=== PATIENT | male | born 1930 | race Caucasian/White ===

== ENCOUNTER → 2017-02-18 | Outpatient (CLI) | payer BC | LOC: FIMAGING 10:35 | PROVIDERS: ATTEND Physician Assistant Medical ==

== ENCOUNTER 2017-07-10 09:47 | Inpatient (IN) | payer OTHER, BC ==
[2017-07-10 10:40] LABS: PLATELET COUNT 136 10^3/uL (150-400)
--- NOTE | 2017-07-10 10:58 | EDPHY ---
General - History Smoking Status: Former smoker Narrative: CHIEF COMPLAINT: Flu-like symptoms, found on the floor HISTORY OF PRESENT ILLNESS: Patient presents with complaints of fever, cough, weakness, myalgia malaise. The symptoms started within the past 48 hr. There abrupt onset. Constant duration. His family members at bedside say that he was not a anglican this morning, thus they went to check on. They found him laying on the side of his bed on the floor. He does not know exactly what time he ended up there. He does not think he fell. He has no headache or neck pain. No chest pain. He has cough that is dry. No neck pain or stiffness. No vomiting but some nausea. Some fever malaise. No trauma or injury otherwise noted. No other associated complaints or modifying factors. REVIEW OF SYSTEMS: Ten systems reviewed and are negative unless otherwise noted in the HPI PCP: Dr. Thomas SPECIALISTS: Dr. Ireland, cardiology PAST MEDICAL HISTORY: Multiple medical diagnoses. Positive Eliquis use for AFib PAST SURGICAL HISTORY: No recent surgeries SOCIAL HISTORY: Nonsmoker. Lives independently. FAMILY HISTORY: Noncontributory EXAMINATION General Appearance: Alert, no distress Head: normocephalic, atraumatic. No Cabrera sign. No raccoon eyes. Eyes: Pupils equal and round, no conjunctival pallor or injection ENT, Mouth: Mucous membranes moist airway patent Neck: Normal inspection, supple, non-tender. No meningeal signs Respiratory: Lungs are clear to auscultation. No wheezing, rhonchi or crackles Cardiovascular: Regular rate and rhythm. No murmur Gastrointestinal: Abdomen is soft and nontender Back: non-tender, no bony abnormalities Neurological: GCS 15. Cranial nerves 2-12 grossly intact. A&O, nonfocal, strength is symmetric in all 4 limbs. No pronator drift Skin: Warm and dry, no rash. No petechiae or purpura Extremities: Nontender, no pedal edema Psychiatric: Mood and affect normal DIFFERENTIAL DIAGNOSES: Including but not limited to influenza, pneumonia, bronchitis, rhabdo, weakness , dehydration MDM: 10:50 a.m. Acute cough with body aches and flu-like symptoms. The patient also fell from bed sometime last night. He was there for unknown period, possible rule out rhabdomyolysis. Laboratory studies, blood cultures and lactic acid are pending. Chest x-ray pending. CT of the head and neck ordered due to Eliquis use. He is in no acute distress but will likely require admission to the hospital. 11:20 a.m. Positive for influenza A. CK is moderately elevated. He is currently in CT scan and has not yet had his chest x-ray. I have ordered IV fluid for the early rhabdo. I have ordered Tamiflu. Remainder of workup is pending. 11:45 a.m. Notified by radiologist Dr. Lee. CT scans of the head and cervical spine are negative for acute findings. 11:50 a.m. Re-evaluated the patient. He is in no acute distress. Mildly hypoxic at 89% on room air. Chest x-ray is currently being shot and I do not appreciate any obvious pneumonia on this. Proceed with admission to the hospital for influenza with hypoxemia and early rhabdo. 11:53 a.m. Case discussed with hospitalist Marcy Jo. Patient will be admitted to Dr. Zavala. He is admitted in stable condition SUPERVISION: Patient was independently examined, but I discussed the case with my secondary supervising physician Dr. Au (Giovanny Maria) Medical Decision Making: I discussed and evaluated this patient with Chemo malone. I agree with the management. I have reviewed the data. We will admission is patient the hospital. The patient has influenza and does not require broad-spectrum antibiotics at this time. (Gabriel Au) - Diagnostics Imaging Results: Imaging Impressions Cervical Spine CT 07/10/17 10:50 Impression: 1. No acute fracture or soft tissue swelling. 2. If the patient has persistent pain or neurologic deficits, consider cervical spine MRI. Findings discussed with emergency department physician anatomic pathology assistant, Giovanny Maria PA-C on July 10, 2017 at 11:48 a.m. Chest X-Ray 07/10/17 10:50 Impression: Clear lungs. Chronic mild airways disease. Head CT 07/10/17 10:50 Impression: 1. Negative. No acute intracranial hemorrhage or fracture. 2. Atrophy and white matter disease similar to 2012. Findings discussed with emergency department physician anatomic pathology assistant, Giovanny Maria PA-C on July 10, 2017 at 11:48 a.m. - Objective Vital Signs: Initial Vital Signs Temperature (C) 98.6 F 07/10/17 09:48 Respiratory Rate 18 07/10/17 09:48 Blood Pressure 139/104 H 07/10/17 09:48 Allergies/Adverse Reactions: griseofulvin Allergy (Verified 01/08/14 09:39) Home Medications: Medication Instructions Recorded Allopurinol [Allopurinol 300 MG 300 mg PO DAILY 01/08/14 (RX)] Aspirin EC [Aspirin EC 81 mg (*)] 81 mg PO DAILY 01/08/14 Furosemide [Lasix 20 MG (*)] 20 mg PO DAILY 01/08/14 Lisinopril [Zestril 2.5 mg (*)] 2.5 mg PO DAILY 01/08/14 Metoprolol Succinate Xr [Toprol Xl 100 mg PO DAILY 01/08/14 50 mg (*)] Apixaban [Eliquis] 2.5 mg PO BID 07/10/17 Calcitriol 0.5 mcg PO DAILY 07/10/17 Digoxin [Digitek] 125 mcg PO MWF@08 07/10/17 Digoxin [Digitek] 250 mcg PO SUTUTHSA@08 07/10/17 Latanoprost 0.005% [Xalatan 0.005% 1 drops EACHEYE HS 07/10/17 (*)] Rosuvastatin Calcium [Crestor] 10 mg PO HS 07/10/17 Laboratory Results: Laboratory Results 07/10/17 10:15 07/10/17 10:15 07/10/17 07/10/17 07/10/17 11:15 10:15 10:15 WBC RBC Hgb Hct MCV MCH MCHC RDW Plt Count MPV Neut % (Auto) Lymph % (Auto) Union % (Auto) Eos % (Auto) Baso % (Auto) Nucleat RBC Rel Count Absolute Neuts (auto) Absolute Lymphs (auto) Absolute Monos (auto) Absolute Eos (auto) Absolute Basos (auto) Absolute Nucleated RBC Immature Gran % Immature Gran # PT 14.6 SEC SEC (12.0-15.0) INR 1.12 (0.83-1.16) APTT 29.4 SEC SEC (23.0-38.0) VBG Lactic Acid 1.6 mmol/L mmol/L (0.7-2.1) Sodium Potassium Chloride Carbon Dioxide Anion Gap BUN Creatinine Estimated GFR Glucose Calcium Total Bilirubin 1.6 mg/dL H mg/dL (0.1-1.4) Creatine Kinase 4687 IU/L H IU/L (0-224) CK-MB (CK-2) Fraction 17.50 ng/mL H ng/mL (0.00-3.19) CK-MB (CK-2) % 0.4 % % (0.0-4.0) Creatine Kinase Interp NEGATIVE (NEGATIVE) Nasal Influenza A PCR Nasal Influenza B PCR 07/10/17 07/10/17 07/10/17 10:15 10:15 10:15 WBC 7.99 10^3/uL 10^3/uL (3.80-9.50) RBC 4.76 10^6/uL 10^6/uL (4.40-6.38) Hgb 16.4 g/dL g/dL (13.7-17.5) Hct 47.5 % % (40.0-51.0) MCV 99.8 fL fL (81.5-99.8) MCH 34.5 pg H pg (27.9-34.1) MCHC 34.5 g/dL g/dL (32.4-36.7) RDW 14.0 % % (11.5-15.2) Plt Count 136 10^3/uL L 10^3/uL (150-400) MPV 11.1 fL fL (8.7-11.7) Neut % (Auto) 83.8 % H % (39.3-74.2) Lymph % (Auto) 5.8 % L % (15.0-45.0) Union % (Auto) 9.3 % % (4.5-13.0) Eos % (Auto) 0.0 % L % (0.6-7.6) Baso % (Auto) 0.6 % % (0.3-1.7) Nucleat RBC Rel Count 0.0 % % (0.0-0.2) Absolute Neuts (auto) 6.70 10^3/uL H 10^3/uL (1.70-6.50) Absolute Lymphs (auto) 0.46 10^3/uL L 10^3/uL (1.00-3.00) Absolute Monos (auto) 0.74 10^3/uL 10^3/uL (0.30-0.80) Absolute Eos (auto) 0.00 10^3/uL L 10^3/uL (0.03-0.40) Absolute Basos (auto) 0.05 10^3/uL 10^3/uL (0.02-0.10) Absolute Nucleated RBC 0.00 10^3/uL 10^3/uL (0-0.01) Immature Gran % 0.5 % % (0.0-1.1) Immature Gran # 0.04 10^3/uL 10^3/uL (0.00-0.10) PT INR APTT VBG Lactic Acid Sodium 142 mEq/L mEq/L (135-145) Potassium 4.2 mEq/L mEq/L (3.5-5.2) Chloride 106 mEq/L mEq/L (97-110) Carbon Dioxide 21 mEq/l L mEq/l (22-31) Anion Gap 15 mEq/L mEq/L (8-16) BUN 27 mg/dL H mg/dL (7-23) Creatinine 1.6 mg/dL H mg/dL (0.7-1.3) Estimated GFR 41 Glucose 110 mg/dL H mg/dL (70-100) Calcium 9.9 mg/dL mg/dL (8.5-10.4) Total Bilirubin Creatine Kinase CK-MB (CK-2) Fraction CK-MB (CK-2) % Creatine Kinase Interp Nasal Influenza A PCR FLU A DETECTED (NEGATIVE) Nasal Influenza B PCR NEGATIVE FOR FLU B (NEGATIVE) Medications Given: Lactated Ringer's (Lr) 1,000 mls @ 100 mls/hr IV CONT KURTIS Stop: 07/11/17 00:59 Last Admin: 07/10/17 15:54 Dose: 1,000 mls Discontinued Medications Acetaminophen (Tylenol) 650 mg PO EDNOW ONE Stop: 07/10/17 11:17 Last Admin: 07/10/17 11:19 Dose: 650 mg Sodium Chloride (Ns) 1,000 mls @ 0 mls/hr IV EDNOW ONE; Wide Open PRN Reason: Protocol Stop: 07/10/17 11:27 Last Admin: 07/10/17 11:54 Dose: 1,000 mls Oseltamivir Phosphate (Tamiflu) 75 mg PO EDNOW ONE Stop: 07/10/17 11:27 Last Admin: 07/10/17 11:52 Dose: 75 mg Departure - Departure Disposition: [facility] Acute Clinical Impression: Influenza A, Hypoxemia Rhabdomyolysis Qualifiers: Rhabdomyolysis type: traumatic Encounter type: initial encounter Qualified Code (s): T79.6XXA - Traumatic ischemia of muscle, initial encounter Condition: Good
[2017-07-10 11:05] LABS: INR 1.12 (0.83-1.16); PROTIME(PATIENT) 14.6 SEC (12.0-15.0)
[2017-07-10] MEDS ORDERED: ACETAMINOPHEN 325 MG TAB PO ONE (11:16)
[2017-07-10 11:21] LABS: CREATINE KINASE 4687 IU/L (0-224)
[2017-07-10] MEDS ORDERED: OSELTAMIVIR PHOSPHATE 75 MG CAP PO ONE (11:26)
[2017-07-10] MEDS ORDERED: NS 1,000 ML IV ONE (11:26)
[2017-07-10] MEDS ORDERED: ONDANSETRON DISINTEGRATING 4 MG TAB PO PRN (12:14)
[2017-07-10] MEDS ORDERED: ONDANSETRON 4 MG/2 ML VIAL IVP PRN (12:14)
[2017-07-10] MEDS ORDERED: ACETAMINOPHEN 325 MG TAB PO PRN (12:14)
--- NOTE | 2017-07-10 12:28 | CPEKG ---
Heart Rate: 114 RR Interval: 526 QRSD Interval: 132 QT Interval: 360 QTC Interval: 496 QRS [place]: -27 T Wave [place]: -55 EKG Severity - ABNORMAL ECG - EKG Impression: ATRIAL FIBRILLATION EKG Impression: RIGHT BUNDLE BRANCH BLOCK EKG Impression: BORDERLINE ST DEPRESSION, LATERAL LEADS Electronically Signed By: Gabriel Au 10-Jul-2017 15:07:57
--- NOTE | 2017-07-10 14:01 | ASMTCMCOM ---
CM Note CM Note Notes: Patient brought into ED via EMS after being found on the floor next to his bed at home by family/friends. Pt doesn't remember having a fall or how he ended up on the floor. Patient admitted for the flu, hypoxemia and early rhabdomyolysis. Patient lives independently. Patient has two daughters, Abbie lives in [place] and Jany lives in [place]. Patient's PCP is Dr. Priti Thomas; pt's storage battery inspector is Dr. Ireland. Pa Exact DC needs unknown. CM to follow. Date Signed: 07/10/2017 02:00 PM Electronically Signed By:Laxmi Sharma RN
[2017-07-10] MEDS ORDERED: LR 1,000 ML IV SCH (15:00)
--- NOTE | 2017-07-10 15:27 | GHP ---
[f rep st] HISTORY AND PHYSICAL DATE OF ADMISSION: 07/10/2017 CHIEF COMPLAINT: Influenza A, weakness. PRIMARY CARE PHYSICIAN: Dr. Thomas. HISTORY OF PRESENT ILLNESS: An 86-year-old male with persistent atrial fibrillation, CKD, CAD, NICM, RAPHAEL on CPAP, presenting with weakness. Reports flu-like symptoms for the last 2 days, including fever, nonproductive cough, myalgia, and malaise. His daughters at bedside said he was not at [employer] this morning, went to check on him. They found him lying on the side of his bed. He said he was trying to get out of bed and slid down and landed on his buttocks but denied any headache or neck pain. He did not have any prodromal chest pain, shortness of breath, palpitations, dizziness, or lightheadedness. He said he was too weak to get back up into bed. Has not been eating and drinking like normal. REVIEW OF SYSTEMS: I completed a 10-point review of systems, negative except as noted in HPI. PAST MEDICAL HISTORY: Hypertension. Atrial fibrillation on anticoagulation, status post unsuccessful cardioversion in 2012. History of bladder cancer. RAPHAEL on CPAP. Pulmonary hypertension. Coronary artery disease. Nonischemic cardiomyopathy. Renal cyst on imaging 01/2017. PAST SURGICAL HISTORY: Cystoprostatectomy. Has a urostomy. SOCIAL HISTORY: Lives in [place] alone. His daughters are here in town. No illicits. Drinks 1 alcoholic beverage a day. ALLERGIES: None. FAMILY HISTORY: Mother with CVA. Father, brother, and uncle with MIs. HOME MEDICATIONS: Crestor 10 mg q.h.s.; Toprol 100 mg daily; Zestril 2.5 mg daily; Lasix 20 mg daily; digoxin 125 mcg Tuesday, Tuesday, Tuesday, 250 every other day; calcitriol 0.5 mcg; aspirin 81 mg daily; Eliquis 2.5 mg b.i.d.; allopurinol 300 mg daily. LABS: WBC 7.9, hemoglobin 16, hematocrit 47, platelets 136. Coagulation within normal. Lactate is 1.6. Sodium 142, potassium 4.2, chloride 106, carbon dioxide 21, BUN 27. Creatinine is 1.6, which is near his baseline of 1.5 to 1.8. Glucose is 110. Total bilirubin 1.6. CK is 4687. Positive influenza A ASSESSMENT AND PLAN: 1. Influenza A: hemodynamically stable, not requiring oxygen. Tamiflu for 5 days. 2. Fall: Per discussion with patient, he did not have any prodromal symptoms. Suspect this is secondary to dehydration and acute illness, as he has reported decreased oral intake. Hydrate here. Check EKG for completeness. He had a CT cervical spine and head that was negative. He will be evaluated by Physical Therapy, Occupational Therapy. 3. Chronic kidney disease: Cr at baseline. We will hold Lasix and lisinopril , given dehydration. 4. Coronary artery disease: Metoprolol, aspirin, beta alex, and statin. 5. Obstructive sleep apnea: Continue his CPAP. 6. History of bladder cancer, status post cystoprostatectomy with a urostomy in place. 7. Permanent atrial fibrillation: failed cardioversion in past. Continue digoxin, beta alex, and Eliquis. 8. Rhabo: CK 4000, Cr at baseline and making urine. Gently hydration, repeat in morning. 9. Mild hypotension: check trop, EKG. Suspect dehydrated. 9. Diet: Cardiac. 10. Deep venous thrombosis prophylaxis: He is on Eliquis. Disposition: Patient warrants observation admission, given acute influenza, hypotension, which places him at subsequent risk for fall and further harm. Requires IVFs, PT /[id number]/MODL MTDD
[2017-07-10] MEDS ORDERED: LR 500 ML IV SCH (16:30)
[2017-07-10] MEDS ORDERED: OSELTAMIVIR PHOSPHATE 75 MG CAP PO SCH (18:00)
[2017-07-10] MEDS: OSELTAMIVIR 6 MG/ML UDSYR PO SCH (18:10)
[2017-07-10] MEDS: LATANOPROST 0.005% 2.5 ML OPHT DROPS EACHEYE SCH (19:58)
[2017-07-10] MEDS: APIXABAN 2.5 MG TAB PO SCH (19:58)
[2017-07-10] MEDS ORDERED: ROSUVASTATIN CALCIUM 10 MG TAB PO SCH (21:00)
[2017-07-11] MEDS ORDERED: LR 1,000 ML IV SCH (03:00)
[2017-07-11 05:34] LABS: CREATINE KINASE 4855 IU/L (0-224)
[2017-07-11] MEDS: APIXABAN 2.5 MG TAB PO SCH ×2 (07:50→19:51)
[2017-07-11] MEDS: ASPIRIN EC 81 MG TAB PO SCH (07:50)
[2017-07-11] MEDS: CALCITRIOL 0.25 MCG CAP PO SCH (07:50)
[2017-07-11] MEDS: ALLOPURINOL 300 MG TAB PO SCH (07:50)
[2017-07-11] MEDS: OSELTAMIVIR 6 MG/ML UDSYR PO SCH ×2 (07:51→18:27)
[2017-07-11] MEDS ORDERED: DIGOXIN 250 MCG TAB PO SCH (08:00)
[2017-07-11] MEDS ORDERED: METOPROLOL SUCCINATE XR 50 MG TAB PO SCH (09:00)
[2017-07-11] MEDS: NS 1,000 ML IV SCH ×2 (11:07→19:50)
--- NOTE | 2017-07-11 13:00 | HOSPPROG ---
Hospitalist Progress Note Assessment/Plan: Patient is an 86-year-old male who has persistent atrial fibrillation, chronic kidney disease and coronary artery disease. He reported to the emergency room having ongoing cough malacia amylase. His daughter had not seen him at [employer] in the morning and she went to his home to find him lying on his bed. He is trying to get out of bed and slid down and landed on his buttocks. Today is my 1st encounter with the patient. Chart reviewed. * influenza a -on Tamiflu * mild rhabdomyolysis CPK trended up will get another CPK this afternoon and if improving could consider discharge with close follow up with his doctor Added normal saline IV Will hold his statin for now * gait instability with fall Likely due to influenza and overall weakness he has not been eating well CT of cervical spine and head are negative Per patient has been able to ambulate quite well * chronic kidney disease Creatinine is 1.4 this is close to his baseline * primary atrial fibrillation Continue Eliquis digoxin and beta-alex * hypotension Improved * thrombocytopenia as well as anemia Likely due to acute illness * coronary artery disease On beta-alex aspirin and statin therapy * obstructive sleep apnea CPAP Plan. Will re-evaluate his CPK to make sure he stranding in the right direction. Discussed this with the patient. Hopefully can go home later this afternoon if this is improved Subjective: Patient lying markedly better today after getting IV hydration Objective: Vital Signs Temp Pulse Resp BP Pulse Ox 37 C 82 18 111/70 92 07/11/17 07:33 07/11/17 07:51 07/11/17 07:33 07/11/17 07:33 07/11/17 09:54 Laboratory Results 07/11/17 04:26 07/11/17 04:26 07/10/17 07/11/17 07/12/17 05:59 05:59 05:59 Intake Total 1550 Output Total 550 Balance 1000 PT 14.6 SEC (12.0-15.0) 07/10/17 10:15 INR 1.12 (0.83-1.16) 07/10/17 10:15 - Physical Exam Constitutional: no apparent distress, appears nourished, not in pain Eyes: PERRL Ears, Nose, Mouth, Throat: hearing normal Cardiovascular: regular rate and rhythym Respiratory: no respiratory distress Gastrointestinal: normoactive bowel sounds Skin: warm Musculoskeletal: full muscle strength Neurologic: AAOx3 Psychiatric: interacting appropriately, not anxious ICD10 Worksheet Patient Problems: Problems Problem Status Onset Hypoxemia Acute Influenza A Acute Rhabdomyolysis Acute
[2017-07-11 15:09] LABS: CREATINE KINASE 5116 IU/L (0-224)
--- NOTE | 2017-07-11 16:24 | PDMN ---
Medical Necessity Medical necessity: Pt meets INPT criteria per MD and [facility] Systemic or Infectious Condition GRG (est. LOS >2 MN for ongoing eval/tx of influenza A, rhabdomyolysis with CPK trending up, requiring IVF 100/hr, gait instability with fall, hypotension, thrombocytopenia, anemia, persistent afib, CKD, CAD).
[2017-07-11] MEDS: LATANOPROST 0.005% 2.5 ML OPHT DROPS EACHEYE SCH (19:50)
[2017-07-12 05:09] LABS: CREATINE KINASE 2969 IU/L (0-224)
[2017-07-12] MEDS: NS 1,000 ML IV SCH (06:48)
[2017-07-12] MEDS ORDERED: DIGOXIN 250 MCG TAB PO SCH (08:00)
[2017-07-12 08:11] VITALS: BP 118/93; PULSE 92; RESP 18; TEMP 97.5; O2SAT 94
--- NOTE | 2017-07-12 08:49 | HOSPPROG ---
Hospitalist Progress Note Assessment/Plan: Patient is an 86-year-old male who has persistent atrial fibrillation, chronic kidney disease and coronary artery disease. He reported to the emergency room having ongoing cough malacia amylase. His daughter had not seen him at [employer] in the morning and she went to his home to find him lying on his bed. He is trying to get out of bed and slid down and landed on his buttocks. Today is my 1st encounter with the patient. Chart reviewed. * influenza a -on Tamiflu * mild rhabdomyolysis trending down mild ok for dc * gait instability with fall Likely due to influenza and overall weakness he has not been eating well CT of cervical spine and head are negative Per patient has been able to ambulate quite well * chronic kidney disease Creatinine is 1.4 this is close to his baseline * primary atrial fibrillation Continue Eliquis digoxin and beta-alex * hypotension Improved * thrombocytopenia as well as anemia Likely due to acute illness * coronary artery disease On beta-alex aspirin and statin therapy * obstructive sleep apnea CPAP dispo: home today > 30 minutes Subjective: ck down. anxious for dc Objective: Vital Signs Temp Pulse Resp BP Pulse Ox 36.4 C 92 18 118/93 H 94 07/12/17 08:00 07/12/17 08:00 07/12/17 08:00 07/12/17 08:00 07/12/17 08:00 Laboratory Results 07/12/17 04:23 07/11/17 07/12/17 07/13/17 05:59 05:59 05:59 Intake Total 2865 180 Output Total 900 Balance 1965 180 PT 14.6 SEC (12.0-15.0) 07/10/17 10:15 INR 1.12 (0.83-1.16) 07/10/17 10:15 - Physical Exam Constitutional: no apparent distress, not in pain Eyes: PERRL, anicteric sclera Ears, Nose, Mouth, Throat: moist mucous membranes, hearing normal Cardiovascular: regular rate and rhythym, no murmur, rub, or gallop Respiratory: no respiratory distress, no rales or rhonchi Gastrointestinal: normoactive bowel sounds, soft, non-tender abdomen, no palpable masses Genitourinary: no bladder fullness, No lentz in urethra Skin: warm, normal color Musculoskeletal: full muscle strength, no muscle tenderness Neurologic: AAOx3, sensation intact bilaterally Psychiatric: interacting appropriately, not anxious Lymph, Heme, Immunologic: no cervical LAD ICD10 Worksheet Patient Problems: Problems Problem Status Onset Hypoxemia Acute Influenza A Acute Rhabdomyolysis Acute
--- NOTE | 2017-07-12 09:26 | ASMTCMCOM ---
CM Note CM Note Notes: Patient chart reviewed. 86 year old male admitted through ED with flu. Normally live independent. Per therapy ok for home but OT would like HH. Family support in area. Patient wants to go home. Might leave [facility]a but encouraged to stay. CM to follow. Date Signed: 07/11/2017 04:12 PM Electronically Signed By:Donna Turner RN
--- NOTE | 2017-07-12 09:28 | ASMTCMCOM ---
CM Note CM Note Notes: Patient medically cleared for discharge to home by [facility]. No needs identified, Home with family support. CM available should needs arise. Date Signed: 07/12/2017 09:27 AM Electronically Signed By:Donna Turner RN
[2017-07-12] MEDS: OSELTAMIVIR 6 MG/ML UDSYR PO SCH (10:40)
[2017-07-12] MEDS: ASPIRIN EC 81 MG TAB PO SCH (10:41)
[2017-07-12] MEDS: ALLOPURINOL 300 MG TAB PO SCH (10:41)
[2017-07-12] MEDS: CALCITRIOL 0.25 MCG CAP PO SCH (10:41)
[2017-07-12] MEDS: APIXABAN 2.5 MG TAB PO SCH (10:41)
--- NOTE | 2017-07-13 04:24 | GDS ---
[f rep st] DISCHARGE SUMMARY DISCHARGE DIAGNOSES: 1. Influenza. 2. Mild rhabdomyolysis without renal impairment. 3. Gait instability. 4. Chronic kidney disease at baseline. 5. Atrial fibrillation. Please see admission history and physical by Dr. Josi Zavala. The patient presented on the nin g of the with weakness and a mechanical fall. He had elevated CK that was 4600, trended up to 5 100, and fell. His creatinine remained at his baseline. He was diagnosed with influenza A and start ed on Tamiflu renally dosed. He is discharged home today with improvement in his function al status. /[id number]/MODL
== END 2017-07-12 11:25 | disposition home or self-care (01) | DRG 194 ==
LOC: INTOOBSV 11:52 → F3E 13:12 → OBSVTOIN 07-11 15:48
PROVIDERS: ADMIT Internal Medicine; ATTEND Internal Medicine
DX: J10.1 Influenza due to other identified influenza virus with other respiratory manifestations (principal); M62.82 Rhabdomyolysis; E86.0 Dehydration; R26.9 Unspecified abnormalities of gait and mobility; N18.9 Chronic kidney disease, unspecified; I25.10 Atherosclerotic heart disease of native coronary artery without angina pectoris; I48.2 Chronic atrial fibrillation; Z79.01 Long term (current) use of anticoagulants; G47.33 Obstructive sleep apnea (adult) (pediatric); Z85.51 Personal history of malignant neoplasm of bladder
CPT/HCPCS: 97116-GP; 97162-GP; 97165-GO; 97535-GO; G0378; G8978-GP-CI; G8979-GP-CI; G8987-GO-CI; G8988-GO-CI; G8989-GO-CI

== ENCOUNTER → 2018-06-02 | Outpatient (CLI) | payer BC | LOC: FCPNEURO 20:00 | PROVIDERS: ATTEND Psychiatry & Neurology Sleep Medicine | DX: G47.33 Obstructive sleep apnea (adult) (pediatric) (principal) ==

== ENCOUNTER → 2018-09-09 | Outpatient (CLI) | payer BC | LOC: FIMAGING 09:13 | PROVIDERS: ATTEND Internal Medicine Cardiovascular Disease | DX: I71.4 Abdominal aortic aneurysm, without rupture (principal) ==

== ENCOUNTER → 2018-10-26 | Outpatient (CLI) | payer BC | LOC: FIMAGING 10:10 | PROVIDERS: ATTEND Specialist | DX: N28.1 Cyst of kidney, acquired (principal); Z85.51 Personal history of malignant neoplasm of bladder ==